=== PATIENT | female | born 1985 | race Hispanic/Latino ===

== ENCOUNTER 2021-11-18 05:29 | Inpatient (IN) | payer OTHER ==
[2021-11-18] VITALS (8 sets, daily range): BP systolic 93–107; BP diastolic 49–65
[~2021-11-18] VITALS: Ht 170.2 cm; Wt 176.9 kg
[2021-11-18 06:48] LABS: BASOPHILS % (AUTO) 0.2 % (0.0-5.0); HEMATOCRIT 30.9 % (36-48); LYMPHOCYTES % (AUTO) 7.7 % (21.0-51.0); MEAN CORPUSCULAR HEMOGLOBIN 18.6 pg (27.0-33.0); MEAN CORPUSCULAR HGB CONC 27.5 g/dL (32.0-36.0); MEAN CORPUSCULAR VOLUME 67.6 fL (79-99); MONOCYTES % (AUTO) 7.7 % (3.0-13.0); NEUTROPHILS % (AUTO) 83.6 % (40.0-77.0); NUCLEATED RED BLOOD CELLS 0.2 % (0.0-0.19); PLATELET COUNT (AUTO) 469 K/uL (130-400); RED BLOOD CELL COUNT(AUTO) 4.57 MIL/uL (4.00-5.50); RED CELL DISTRIBUTION WIDTH 18.9 % (11.0-15.5); WHITE BLOOD COUNT (AUTO) 17.3 K/uL (4.8-10.8)
[2021-11-18 07:01] LABS: ABG BASE EXCESS -4.7 mmol/L (-2.0-3.0); ABG HCO3 22.4 mmol/L (21.0-28.0); ABG OXYGEN SATURATION 83.5 % (95.0-99.0); ABG PCO2 49 mmHg (32-45)
[2021-11-18 07:06] LABS: ALBUMIN 1.9 g/dL (3.5-5.0); BILIRUBIN,TOTAL 0.4 mg/dL (0.2-1.0); CREATININE 6.7 mg/dL (0.5-1.5); POTASSIUM 4.8 mmol/L (3.5-5.1); TOTAL PROTEIN, SERUM 8.3 g/dL (6.0-8.3)
[2021-11-18] MEDS ORDERED: PANTOPRAZOLE 40 MG/VIAL IVP SCH (07:30)
[2021-11-18] MEDS ORDERED: FAMOTIDINE 20MG VIAL IV SCH (07:30)
[2021-11-18] MEDS ORDERED: ONDANSETRON 4MG INJ IVP SCH (07:30)
[2021-11-18] MEDS ORDERED: METOCLOPRAMIDE 10 MG/2 ML VIAL IVP SCH (07:30)
[2021-11-18] MEDS ORDERED: 0.9%NACL 1000ML 1,000 ML IV SCH (07:30)
[2021-11-18 10:06] LABS: BILIRUBIN,URINE Small (NEGATIVE); COLOR,URINE Dark Yellow (YELLOW); GLUCOSE, URINE (UA) Negative (NEGATIVE); KETONES,URINE Trace mg/dL (NEGATIVE); LEUKOCYTE ESTERASE ,URINE Trace (NEGATIVE); NITRATE,URINE Negative (NEGATIVE); OCCULT BLOOD,URINE Negative (NEGATIVE); PROTEIN,URINE POS 1+ mg/dL (NEGATIVE)
[2021-11-18 10:10] LABS: APPEARANCE,URINE CLOUDY (CLEAR)
[2021-11-18 10:15] LABS: RBC,URINE 0-1 /HPF (0-1); WBC,URINE 0-1 /HPF (0-1)
[2021-11-18 10:16] LABS: BACTERIA,URINE Few /HPF (None Seen); SQUAMOUS EPITHELIAL CELL,UR Few /HPF (0-2)
[2021-11-18] MEDS ORDERED: PHARMACY COMMUNICATION MISC SCH (11:00)
[2021-11-18] MEDS ORDERED: FOLIC ACID 5 MG/ML VIAL IV SCH (11:30)
[2021-11-18] MEDS ORDERED: THIAMINE HCL 100 MG/ML 2ML VIAL IVP SCH (11:30)
[2021-11-18] MEDS ORDERED: ZOSYN 3.375GM+NS 50ML 50 ML IV SCH (11:30)
[2021-11-18] MEDS: PANTOPRAZOLE 40 MG/VIAL IVP SCH (12:43)
[2021-11-18] MEDS: ALBUMIN (HUMAN) 25% 100 ML IV SCH ×2 (12:45→17:06)
[2021-11-18 12:47] LABS: CREATININE 6.9 mg/dL (0.5-1.5); POTASSIUM 5.2 mmol/L (3.5-5.1)
[2021-11-18 12:49] LABS: INR 1.08 (0.85-1.15); PROTHROMBIN TIME 11.7 SEC (9.6-11.6)
[2021-11-18 12:50] LABS: % IRON SATURATION 5.9 % (22-44); HEMOGLOBIN A1C 8.1 % (4.0-6.0)
[2021-11-18 12:51] LABS: PARTIAL THROMBOPLASTIN TIME 27.9 SEC (26.3-35.5)
[2021-11-18 13:29] LABS: CREATININE,URINE RANDOM 344 mg/dL (30-135); SODIUM,URINE RANDOM 27 mmol/l (40-220)
[2021-11-18] MEDS ORDERED: LOSA25TA41 PO (13:42)
[2021-11-18] MEDS ORDERED: METF-445 PO (13:42)
[2021-11-18] MEDS ORDERED: MIDODRINE HCL 5 MG TABLET PO SCH (14:00)
[2021-11-18] MEDS ORDERED: NA ZIRCON CYCLOSIL(LOKELMA 10GM) PO ONE (14:00)
[2021-11-18] MEDS: MIDODRINE HCL 5 MG TABLET PO SCH ×2 (14:01→20:14)
[2021-11-18] MEDS: SODIUM BICARBONATE 650 MG TAB PO SCH ×2 (14:01→20:14)
[2021-11-18 16:04] LABS: THYROID STIMULATING HORMONE 2.03 uIU/mL (0.36-3.74)
[2021-11-18] MEDS: DOXYCYCLINE 100MG+NS 250ML IV SCH (17:05)
[2021-11-18] MEDS: 0.9% NACL 250ML 250 ML IV SCH (17:05)
[2021-11-18] MEDS: HEPARIN 5,000 UNIT VIAL SQ SCH ×2 (17:05→23:03)
[2021-11-18] MEDS: FUROSEMIDE 20MG VIAL IV SCH (18:37)
[2021-11-18] MEDS: OCTREOTIDE ACETATE 100 MCG/ML AMP IV SCH (18:37)
[2021-11-18] MEDS: ALBUMIN (HUMAN) 25% 50 ML IV SCH (19:46)
[2021-11-18] MEDS: METOPROLOL TARTRATE 25 MG TAB PO SCH (20:14)
[2021-11-18] MEDS: ATORVASTATIN 20 MG TABLET PO SCH (20:14)
[2021-11-18] MEDS: ZOSYN 3.375GM+NS 50ML 50 ML IV SCH (20:15)
[2021-11-19] VITALS (12 sets, daily range): BP systolic 96–116; BP diastolic 42–75
[2021-11-19] MEDS: OCTREOTIDE ACETATE 100 MCG/ML AMP IV SCH ×3 (01:00→18:24)
[2021-11-19] MEDS: ALBUMIN (HUMAN) 25% 50 ML IV SCH ×3 (01:49→18:08)
[2021-11-19] MEDS: FUROSEMIDE 20MG VIAL IV SCH (02:15)
[2021-11-19] MEDS: 0.9% NACL 250ML 250 ML IV SCH ×2 (03:02→14:59)
[2021-11-19] MEDS: DOXYCYCLINE 100MG+NS 250ML IV SCH ×2 (03:02→14:49)
[2021-11-19 03:33] LABS: HEMATOCRIT 30.2 % (36-48); MEAN CORPUSCULAR HGB CONC 26.5 g/dL (32.0-36.0); MEAN CORPUSCULAR VOLUME 71.7 fL (79-99); NUCLEATED RED BLOOD CELLS 0.1 % (0.0-0.19); RED BLOOD CELL COUNT(AUTO) 4.21 MIL/uL (4.00-5.50); RED CELL DISTRIBUTION WIDTH 19.4 % (11.0-15.5); WHITE BLOOD COUNT (AUTO) 20.7 K/uL (4.8-10.8)
[2021-11-19 03:56] LABS: CREATININE 7.5 mg/dL (0.5-1.5); MAGNESIUM 2.4 mg/dL (1.80-2.40)
[2021-11-19 04:21] LABS: PHOSPHORUS 10.6 mg/dL (2.5-4.9)
[2021-11-19] MEDS ORDERED: DEXTROSE 50%-WATER 50 ML DISP.SYRIN IV ONE ×2 (04:30→04:42)
[2021-11-19] MEDS ORDERED: CALCIUM GLUC 1GM/10ML VIAL IV ONE (04:30)
[2021-11-19] MEDS ORDERED: ALBUTEROL 0.083% 2.5 MG/3 ML INH IH ONE (04:30)
[2021-11-19] MEDS ORDERED: INSULIN HUMULIN R 100 UNIT/ML 3ML IV ONE (04:30)
[2021-11-19] MEDS ORDERED: SODIUM BICARB 50MEQ 50ML VIAL IV ONE (04:30)
[2021-11-19] MEDS ORDERED: 0.9%NACL 50ML 50 ML IV ONE (04:39)
[2021-11-19] MEDS ORDERED: SODIUM BICARB 50MEQ 50ML VIAL 50 ML ONE (04:41)
[2021-11-19] MEDS ORDERED: CALCIUM GLUC 1GM/10ML VIAL ONE (04:42)
[2021-11-19] MEDS ORDERED: INSULIN HUMULIN R 100 UNIT/ML 3ML ONE (04:42)
[2021-11-19] MEDS: SODIUM BICARBONATE 650 MG TAB PO SCH ×2 (08:16→20:25)
[2021-11-19] MEDS: METOPROLOL TARTRATE 25 MG TAB PO SCH (08:16)
[2021-11-19] MEDS: ASPIRIN 81MG CHEW TAB PO SCH (08:16)
[2021-11-19] MEDS: ZOSYN 3.375GM+NS 50ML 50 ML IV SCH ×2 (08:17→20:24)
[2021-11-19] MEDS: THIAMINE HCL 100 MG/ML 2ML VIAL IVP SCH (08:17)
[2021-11-19] MEDS: PANTOPRAZOLE 40 MG/VIAL IVP SCH (08:17)
[2021-11-19] MEDS: MIDODRINE HCL 5 MG TABLET PO SCH ×3 (08:17→20:25)
[2021-11-19] MEDS: HEPARIN 5,000 UNIT VIAL SQ SCH ×3 (08:19→23:52)
[2021-11-19] MEDS: FOLIC ACID 5 MG/ML VIAL IV SCH (08:46)
[2021-11-19] MEDS ORDERED: PHARMACY COMMUNICATION MISC SCH (09:30)
[2021-11-19] MEDS: IRON SUCROSE COMPLEX 100 MG in 0.9%NACL 50ML 50 ML IV SCH (10:54)
[2021-11-19] MEDS ORDERED: NA ZIRCON CYCLOSIL(LOKELMA 10GM) PO SCH (11:30)
[2021-11-19] MEDS ORDERED: COMPOUND IV MISC 1 EACH IVSOLN MISC PRN (12:00)
[2021-11-19] MEDS ORDERED: FUROSEMIDE 20MG VIAL IV SCH (12:00)
[2021-11-19] MEDS: CALCIUM AC 667MG CAP PO SCH ×2 (12:30→16:44)
[2021-11-19] MEDS ORDERED: PERFLUTREN PROTEIN-A MICROSPHR 0.22 MG/ML VIAL IV ONE (15:00)
[2021-11-19] MEDS ORDERED: TRAMADOL HCL 50 MG TABLET PO ONE (17:50)
[2021-11-19] MEDS: ATORVASTATIN 20 MG TABLET PO SCH (20:24)
[2021-11-19] MEDS: EPOETIN ALFA-EPBX (ESRD) 10,000 UNIT/ML VIAL SQ SCH (23:52)
[2021-11-20] VITALS (15 sets, daily range): BP systolic 99–143; BP diastolic 47–83
[2021-11-20] MEDS: ALBUMIN (HUMAN) 25% 50 ML IV SCH ×2 (01:28→09:25)
[2021-11-20] MEDS: OCTREOTIDE ACETATE 100 MCG/ML AMP IV SCH ×3 (01:41→18:50)
[2021-11-20] MEDS: 0.9% NACL 250ML 250 ML IV SCH ×2 (04:24→16:00)
[2021-11-20] MEDS: DOXYCYCLINE 100MG+NS 250ML IV SCH ×2 (04:24→16:00)
[2021-11-20 05:51] LABS: BASOPHILS % (AUTO) 0.1 % (0.0-5.0); LYMPHOCYTES % (AUTO) 9.7 % (21.0-51.0); MEAN CORPUSCULAR HEMOGLOBIN 18.6 pg (27.0-33.0); MEAN CORPUSCULAR HGB CONC 27.1 g/dL (32.0-36.0); MEAN CORPUSCULAR VOLUME 68.6 fL (79-99); NEUTROPHILS % (AUTO) 84.8 % (40.0-77.0); NUCLEATED RED BLOOD CELLS 0.2 % (0.0-0.19); PLATELET COUNT (AUTO) 515 K/uL (130-400); RED BLOOD CELL COUNT(AUTO) 4.08 MIL/uL (4.00-5.50); RED CELL DISTRIBUTION WIDTH 18.8 % (11.0-15.5)
[2021-11-20 06:03] LABS: POTASSIUM 5.1 mmol/L (3.5-5.1)
[2021-11-20 06:07] LABS: CREATININE 8.1 mg/dL (0.5-1.5)
[2021-11-20 06:51] LABS: ABG BASE EXCESS -5.8 mmol/L (-2.0-3.0); ABG HCO3 22.8 mmol/L (21.0-28.0); ABG PCO2 57 mmHg (32-45)
[2021-11-20] MEDS: HEPARIN 5,000 UNIT VIAL SQ SCH ×2 (08:00→16:00)
[2021-11-20 08:33] LABS: HEPATITIS A IGM ANTIBODY Non-Reactive (Negative); HEPATITIS B SURFACE ANTIGEN Non-Reactive (Negative); HEPATITIS C ANTIBODY Non-Reactive (NEGATIVE)
[2021-11-20] MEDS ORDERED: 0.9%NACL 50ML 50 ML IV ONE (09:15)
[2021-11-20] MEDS: SODIUM BICARBONATE 650 MG TAB PO SCH ×2 (09:18→21:00)
[2021-11-20] MEDS: ZOSYN 3.375GM+NS 50ML 50 ML IV SCH ×2 (09:18→21:00)
[2021-11-20] MEDS: PANTOPRAZOLE 40 MG/VIAL IVP SCH (09:18)
[2021-11-20] MEDS: ASPIRIN 81MG CHEW TAB PO SCH (09:18)
[2021-11-20] MEDS: MIDODRINE HCL 5 MG TABLET PO SCH ×3 (09:19→21:00)
[2021-11-20] MEDS: THIAMINE HCL 100 MG/ML 2ML VIAL IVP SCH (09:19)
[2021-11-20] MEDS: FOLIC ACID 5 MG/ML VIAL IV SCH (09:20)
[2021-11-20] MEDS: CALCIUM AC 667MG CAP PO SCH ×3 (09:25→18:00)
[2021-11-20] MEDS: IRON SUCROSE COMPLEX 100 MG in 0.9%NACL 50ML 50 ML IV SCH (09:33)
[2021-11-20 09:41] LABS: HEMATOCRIT 28.2 % (36-48)
[2021-11-20 09:50] LABS: ALBUMIN 2.5 g/dL (3.5-5.0)
[2021-11-20 09:52] LABS: CREATININE 8.2 mg/dL (0.5-1.5)
[2021-11-20 10:25] LABS: HEPATITIS B CORE IGM ANTIBODY Non-Reactive (Negative)
[2021-11-20] MEDS ORDERED: HEPARIN 1,000 UNIT VIAL ONE (14:06)
[2021-11-20] MEDS ORDERED: LIDOCAINE HCL 1% MDV 50ML VIAL ONE (14:07)
[2021-11-20] MEDS: ATORVASTATIN 20 MG TABLET PO SCH (21:00)
[2021-11-21] VITALS (17 sets, daily range): BP systolic 88–142; BP diastolic 45–80
[2021-11-21] MEDS: HEPARIN 5,000 UNIT VIAL SQ SCH ×3 (00:48→15:26)
[2021-11-21] MEDS: ALBUMIN (HUMAN) 25% 50 ML IV SCH ×2 (01:00→09:57)
[2021-11-21] MEDS: OCTREOTIDE ACETATE 100 MCG/ML AMP IV SCH ×3 (02:57→17:18)
[2021-11-21] MEDS: 0.9% NACL 250ML 250 ML IV SCH ×2 (05:20→16:00)
[2021-11-21] MEDS: DOXYCYCLINE 100MG+NS 250ML IV SCH (05:20)
[2021-11-21] MEDS: CALCIUM AC 667MG CAP PO SCH ×2 (08:00→17:00)
[2021-11-21] MEDS: IRON SUCROSE COMPLEX 100 MG in 0.9%NACL 50ML 50 ML IV SCH ×2 (09:00→15:05)
[2021-11-21] MEDS: ZOSYN 3.375GM+NS 50ML 50 ML IV SCH (09:00)
[2021-11-21] MEDS: THIAMINE HCL 100 MG/ML 2ML VIAL IVP SCH ×2 (09:00→15:06)
[2021-11-21] MEDS: ASPIRIN 81MG CHEW TAB PO SCH (09:00)
[2021-11-21] MEDS: FOLIC ACID 5 MG/ML VIAL IV SCH ×2 (09:00→15:08)
[2021-11-21] MEDS: SODIUM BICARBONATE 650 MG TAB PO SCH ×2 (09:00→21:58)
[2021-11-21] MEDS: PANTOPRAZOLE 40 MG/VIAL IVP SCH ×2 (09:00→15:06)
[2021-11-21] MEDS: MIDODRINE HCL 5 MG TABLET PO SCH ×3 (09:52→21:58)
[2021-11-21 10:26] LABS: CREATININE 7.2 mg/dL (0.5-1.5); POTASSIUM 5.6 mmol/L (3.5-5.1)
[2021-11-21] MEDS: METRONIDAZOLE 500MG/100ML BAG 100 ML IVPB SCH ×2 (15:05→21:59)
[2021-11-21] MEDS: EPOETIN ALFA-EPBX (ESRD) 10,000 UNIT/ML VIAL SQ SCH (21:00)
[2021-11-21] MEDS ORDERED: EPOETIN ALFA-EPBX (ESRD) 10,000 UNIT/ML VIAL SQ SCH (21:00)
[2021-11-21] MEDS: ATORVASTATIN 20 MG TABLET PO SCH (21:58)
[2021-11-22] VITALS (29 sets, daily range): BP systolic 94–156; BP diastolic 51–91
[2021-11-22] MEDS: HEPARIN 5,000 UNIT VIAL SQ SCH ×3 (00:31→16:00)
[2021-11-22] MEDS: OCTREOTIDE ACETATE 100 MCG/ML AMP IV SCH ×2 (02:23→10:36)
[2021-11-22] MEDS: 0.9% NACL 250ML 250 ML IV SCH ×2 (04:00→16:00)
[2021-11-22] MEDS: METRONIDAZOLE 500MG/100ML BAG 100 ML IVPB SCH ×2 (06:05→23:16)
[2021-11-22] MEDS: CALCIUM AC 667MG CAP PO SCH ×2 (08:00→13:21)
[2021-11-22] MEDS: THIAMINE HCL 100 MG/ML 2ML VIAL IVP SCH (10:37)
[2021-11-22] MEDS: SODIUM BICARBONATE 650 MG TAB PO SCH ×2 (10:37→22:45)
[2021-11-22] MEDS: FOLIC ACID 5 MG/ML VIAL IV SCH (10:37)
[2021-11-22] MEDS: ASPIRIN 81MG CHEW TAB PO SCH (10:46)
[2021-11-22] MEDS: IRON SUCROSE COMPLEX 300 MG in 0.9%NACL 50ML 50 ML IV SCH (10:47)
[2021-11-22] MEDS ORDERED: VANCOMYCIN PROTOCOL PER PHARMACY IV PRN (12:30)
[2021-11-22] MEDS ORDERED: RENAL DOSE IV SCH (12:30)
[2021-11-22] MEDS ORDERED: COMPOUND IV REFRIGERATED 1 EACH IVSOLN MISC PRN (12:30)
[2021-11-22 12:39] LABS: BASOPHILS % (AUTO) 0.2 % (0.0-5.0); EOSINOPHILS % (AUTO) 0.2 % (0.0-8.0); HEMATOCRIT 27.5 % (36-48); LYMPHOCYTES % (AUTO) 7.6 % (21.0-51.0); MEAN CORPUSCULAR HEMOGLOBIN 18.7 pg (27.0-33.0); MEAN CORPUSCULAR HGB CONC 26.9 g/dL (32.0-36.0); MEAN CORPUSCULAR VOLUME 69.6 fL (79-99); MONOCYTES % (AUTO) 4.8 % (3.0-13.0); NEUTROPHILS % (AUTO) 85.9 % (40.0-77.0); NUCLEATED RED BLOOD CELLS 0.2 % (0.0-0.19); PLATELET COUNT (AUTO) 542 K/uL (130-400); RED BLOOD CELL COUNT(AUTO) 3.95 MIL/uL (4.00-5.50); RED CELL DISTRIBUTION WIDTH 19.5 % (11.0-15.5); WHITE BLOOD COUNT (AUTO) 16.9 K/uL (4.8-10.8)
[2021-11-22 13:02] LABS: ALBUMIN 2.3 g/dL (3.5-5.0); BILIRUBIN,TOTAL 1.6 mg/dL (0.2-1.0); CREATININE 5.8 mg/dL (0.5-1.5); POTASSIUM 4.5 mmol/L (3.5-5.1); TOTAL PROTEIN, SERUM 7.8 g/dL (6.0-8.3)
[2021-11-22] MEDS: MIDODRINE HCL 5 MG TABLET PO SCH ×2 (13:10→22:45)
[2021-11-22] MEDS: MEROPENEM 500 MG VIAL IV SCH ×2 (13:10→23:16)
[2021-11-22] MEDS: HYDROCORTISONE SOD SUCCINATE 100 MG/2 ML VIAL IV SCH ×2 (13:10→23:17)
[2021-11-22] MEDS ORDERED: SODIUM CHLORIDE 3% FOR INHALATION 4 ML/AMP VIAL.NEB IH ONE ×3 (13:13→23:37)
[2021-11-22 14:12] LABS: ALPHA-1-ANTITRYPSIN 357 mg/dL (100-188)
[2021-11-22] MEDS: VANCOMYCIN 1.75GM/250ML NS IV SCH ×2 (18:26)
[2021-11-22] MEDS ORDERED: HEPARIN 5,000 UNIT VIAL IV PRN (18:30)
[2021-11-22] MEDS: ATORVASTATIN 20 MG TABLET PO SCH (22:45)
[2021-11-23 00:15] VITALS: BP 129/71
[2021-11-23] MEDS: HEPARIN 5,000 UNIT VIAL SQ SCH ×3 (00:35→17:16)
[2021-11-23] MEDS: OCTREOTIDE ACETATE 100 MCG/ML AMP IV SCH ×2 (02:15→11:41)
[2021-11-23 04:00] VITALS: BP 121/63
[2021-11-23] MEDS: 0.9% NACL 250ML 250 ML IV SCH ×3 (04:00→17:05)
[2021-11-23 04:07] LABS: BASOPHILS % (AUTO) 0.1 % (0.0-5.0); HEMATOCRIT 27.7 % (36-48); LYMPHOCYTES % (AUTO) 5.1 % (21.0-51.0); MEAN CORPUSCULAR HGB CONC 27.1 g/dL (32.0-36.0); MEAN CORPUSCULAR VOLUME 70.3 fL (79-99); MONOCYTES % (AUTO) 3.7 % (3.0-13.0); NEUTROPHILS % (AUTO) 89.4 % (40.0-77.0); NUCLEATED RED BLOOD CELLS 0.1 % (0.0-0.19); PLATELET COUNT (AUTO) 498 K/uL (130-400); RED BLOOD CELL COUNT(AUTO) 3.94 MIL/uL (4.00-5.50); WHITE BLOOD COUNT (AUTO) 17.7 K/uL (4.8-10.8)
[2021-11-23 04:22] LABS: ALBUMIN 2.2 g/dL (3.5-5.0); BILIRUBIN,TOTAL 1.6 mg/dL (0.2-1.0); CREATININE 4.2 mg/dL (0.5-1.5); POTASSIUM 4.6 mmol/L (3.5-5.1)
[2021-11-23] MEDS: MEROPENEM 500 MG VIAL IV SCH ×3 (05:16→21:41)
[2021-11-23] MEDS: METRONIDAZOLE 500MG/100ML BAG 100 ML IVPB SCH ×3 (05:17→21:40)
[2021-11-23 07:57] VITALS: BP 134/70
[2021-11-23] MEDS: CALCIUM AC 667MG CAP PO SCH ×5 (08:00→17:11)
[2021-11-23] MEDS: PANTOPRAZOLE 40 MG/VIAL IVP SCH (10:12)
[2021-11-23] MEDS: ASPIRIN 81MG CHEW TAB PO SCH (10:13)
[2021-11-23] MEDS: SODIUM BICARBONATE 650 MG TAB PO SCH ×2 (10:14→21:39)
[2021-11-23] MEDS: MIDODRINE HCL 5 MG TABLET PO SCH ×3 (10:14→21:39)
[2021-11-23] MEDS: FUROSEMIDE 40MG VIAL IV SCH ×2 (10:14→21:40)
[2021-11-23] MEDS: HYDROCORTISONE SOD SUCCINATE 100 MG/2 ML VIAL IV SCH ×3 (10:16→21:41)
[2021-11-23 12:58] VITALS: BP 144/73
[2021-11-23 13:53] LABS: ABG HCO3 25.5 mmol/L (21.0-28.0); ABG OXYGEN SATURATION 89.8 % (95.0-99.0); ABG PCO2 54 mmHg (32-45)
[2021-11-23] MEDS: IRON SUCROSE COMPLEX 300 MG in 0.9%NACL 50ML 50 ML IV SCH ×2 (15:55→17:04)
[2021-11-23 16:56] VITALS: BP 145/76
[2021-11-23 20:00] VITALS: BP 138/80
[2021-11-23] MEDS: ATORVASTATIN 20 MG TABLET PO SCH (21:39)
[2021-11-23] MEDS: EPOETIN ALFA-EPBX (ESRD) 10,000 UNIT/ML VIAL SQ SCH (21:41)
[2021-11-24] VITALS (20 sets, daily range): BP systolic 128–160; BP diastolic 70–98
[2021-11-24] MEDS: HEPARIN 5,000 UNIT VIAL SQ SCH ×3 (00:52→16:26)
[2021-11-24] MEDS: MEROPENEM 500 MG VIAL IV SCH ×3 (05:05→21:17)
[2021-11-24] MEDS: METRONIDAZOLE 500MG/100ML BAG 100 ML IVPB SCH ×3 (05:05→21:16)
[2021-11-24 05:12] LABS: BASOPHILS % (AUTO) 0.2 % (0.0-5.0); HEMATOCRIT 27.3 % (36-48); LYMPHOCYTES % (AUTO) 5.3 % (21.0-51.0); MEAN CORPUSCULAR HEMOGLOBIN 19.2 pg (27.0-33.0); MEAN CORPUSCULAR HGB CONC 27.1 g/dL (32.0-36.0); MEAN CORPUSCULAR VOLUME 70.9 fL (79-99); NEUTROPHILS % (AUTO) 88.9 % (40.0-77.0); PLATELET COUNT (AUTO) 499 K/uL (130-400); RED BLOOD CELL COUNT(AUTO) 3.85 MIL/uL (4.00-5.50); RED CELL DISTRIBUTION WIDTH 20.5 % (11.0-15.5); WHITE BLOOD COUNT (AUTO) 16.4 K/uL (4.8-10.8)
[2021-11-24 05:26] LABS: ALBUMIN 2.2 g/dL (3.5-5.0); BILIRUBIN,TOTAL 1.3 mg/dL (0.2-1.0); CREATININE 3.7 mg/dL (0.5-1.5); POTASSIUM 4.7 mmol/L (3.5-5.1)
[2021-11-24] MEDS: SODIUM BICARBONATE 650 MG TAB PO SCH ×2 (10:26→21:16)
[2021-11-24] MEDS: ASPIRIN 81MG CHEW TAB PO SCH (10:26)
[2021-11-24] MEDS: MIDODRINE HCL 5 MG TABLET PO SCH ×3 (10:26→21:16)
[2021-11-24] MEDS: FUROSEMIDE 40MG VIAL IV SCH ×2 (10:27→21:17)
[2021-11-24] MEDS: PANTOPRAZOLE 40 MG/VIAL IVP SCH (10:28)
[2021-11-24] MEDS: THIAMINE HCL 100 MG/ML 2ML VIAL IVP SCH (10:28)
[2021-11-24] MEDS: HYDROCORTISONE SOD SUCCINATE 100 MG/2 ML VIAL IV SCH ×3 (10:29→21:17)
[2021-11-24] MEDS: FOLIC ACID 5 MG/ML VIAL IV SCH (10:29)
[2021-11-24] MEDS: CALCIUM AC 667MG CAP PO SCH ×3 (12:30→16:30)
[2021-11-24] MEDS: VANCOMYCIN 1.75GM/250ML NS IV SCH ×2 (13:11)
[2021-11-24] MEDS: IRON SUCROSE COMPLEX 300 MG in 0.9%NACL 50ML 50 ML IV SCH (16:29)
[2021-11-24] MEDS: ATORVASTATIN 20 MG TABLET PO SCH (21:16)
[2021-11-25] VITALS (7 sets, daily range): BP systolic 119–148; BP diastolic 66–80
[2021-11-25] MEDS: HEPARIN 5,000 UNIT VIAL SQ SCH ×5 (00:27→23:31)
[2021-11-25] MEDS: MEROPENEM 500 MG VIAL IV SCH ×3 (04:48→20:58)
[2021-11-25 05:22] LABS: BASOPHILS % (AUTO) 0.1 % (0.0-5.0); HEMATOCRIT 28.1 % (36-48); LYMPHOCYTES % (AUTO) 6.1 % (21.0-51.0); MEAN CORPUSCULAR HEMOGLOBIN 18.8 pg (27.0-33.0); MEAN CORPUSCULAR HGB CONC 26.3 g/dL (32.0-36.0); MEAN CORPUSCULAR VOLUME 71.3 fL (79-99); MONOCYTES % (AUTO) 4.9 % (3.0-13.0); NEUTROPHILS % (AUTO) 86.9 % (40.0-77.0); PLATELET COUNT (AUTO) 478 K/uL (130-400); RED BLOOD CELL COUNT(AUTO) 3.94 MIL/uL (4.00-5.50); RED CELL DISTRIBUTION WIDTH 21.2 % (11.0-15.5); WHITE BLOOD COUNT (AUTO) 16.3 K/uL (4.8-10.8)
[2021-11-25 05:35] LABS: ALBUMIN 2.3 g/dL (3.5-5.0); BILIRUBIN,TOTAL 0.8 mg/dL (0.2-1.0); CREATININE 2.2 mg/dL (0.5-1.5); POTASSIUM 4.1 mmol/L (3.5-5.1); TOTAL PROTEIN, SERUM 7.8 g/dL (6.0-8.3)
[2021-11-25] MEDS: METRONIDAZOLE 500MG/100ML BAG 100 ML IVPB SCH ×3 (06:20→20:58)
[2021-11-25] MEDS: CALCIUM AC 667MG CAP PO SCH ×3 (08:00→17:04)
[2021-11-25] MEDS: ASPIRIN 81MG CHEW TAB PO SCH (11:48)
[2021-11-25] MEDS: MIDODRINE HCL 5 MG TABLET PO SCH ×2 (11:49→14:00)
[2021-11-25] MEDS: THIAMINE HCL 100 MG/ML 2ML VIAL IVP SCH (11:49)
[2021-11-25] MEDS: PANTOPRAZOLE 40 MG/VIAL IVP SCH (11:49)
[2021-11-25] MEDS: HYDROCORTISONE SOD SUCCINATE 100 MG/2 ML VIAL IV SCH ×2 (11:51→14:00)
[2021-11-25] MEDS: FUROSEMIDE 40MG VIAL IV SCH ×2 (11:53→21:03)
[2021-11-25] MEDS: FOLIC ACID 5 MG/ML VIAL IV SCH (11:54)
[2021-11-25] MEDS: METOLAZONE 2.5 MG TABLET PO SCH (17:24)
[2021-11-25] MEDS: IRON SUCROSE COMPLEX 300 MG in 0.9%NACL 50ML 50 ML IV SCH (17:26)
[2021-11-25] MEDS: BISACODYL 5 MG TABLET.DR PO SCH (20:58)
[2021-11-26 04:00] VITALS: BP 148/82
[2021-11-26] MEDS: MEROPENEM 500 MG VIAL IV SCH ×3 (04:08→21:34)
[2021-11-26] MEDS: METRONIDAZOLE 500MG/100ML BAG 100 ML IVPB SCH ×3 (04:08→21:35)
[2021-11-26 06:01] LABS: BASOPHILS % (AUTO) 0.2 % (0.0-5.0); EOSINOPHILS % (AUTO) 0.3 % (0.0-8.0); HEMATOCRIT 30.6 % (36-48); LYMPHOCYTES % (AUTO) 8.4 % (21.0-51.0); MEAN CORPUSCULAR HEMOGLOBIN 19.3 pg (27.0-33.0); MEAN CORPUSCULAR HGB CONC 26.1 g/dL (32.0-36.0); MEAN CORPUSCULAR VOLUME 73.7 fL (79-99); MONOCYTES % (AUTO) 8.8 % (3.0-13.0); NEUTROPHILS % (AUTO) 80.5 % (40.0-77.0); PLATELET COUNT (AUTO) 474 K/uL (130-400); RED BLOOD CELL COUNT(AUTO) 4.15 MIL/uL (4.00-5.50); RED CELL DISTRIBUTION WIDTH 21.7 % (11.0-15.5)
[2021-11-26 06:23] LABS: % IRON SATURATION 25.3 % (22-44); INR 1.17 (0.85-1.15); PROTHROMBIN TIME 12.6 SEC (9.6-11.6)
[2021-11-26 06:24] LABS: PARTIAL THROMBOPLASTIN TIME 30.4 SEC (26.3-35.5)
[2021-11-26 06:44] LABS: ALBUMIN 2.3 g/dL (3.5-5.0); BILIRUBIN,TOTAL 0.6 mg/dL (0.2-1.0); CREATININE 1.6 mg/dL (0.5-1.5); PHOSPHORUS 4.3 mg/dL (2.5-4.9); POTASSIUM 3.8 mmol/L (3.5-5.1); TOTAL PROTEIN, SERUM 7.9 g/dL (6.0-8.3)
[2021-11-26 08:00] VITALS: BP 131/74
[2021-11-26] MEDS: CALCIUM AC 667MG CAP PO SCH ×3 (09:07→16:13)
[2021-11-26] MEDS: ASPIRIN 81MG CHEW TAB PO SCH (09:07)
[2021-11-26] MEDS: PANTOPRAZOLE 40 MG/VIAL IVP SCH (09:07)
[2021-11-26] MEDS: FUROSEMIDE 40MG VIAL IV SCH ×2 (09:07→21:35)
[2021-11-26] MEDS: BISACODYL 5 MG TABLET.DR PO SCH ×3 (09:07→21:35)
[2021-11-26] MEDS: THIAMINE HCL 100 MG/ML 2ML VIAL IVP SCH (09:07)
[2021-11-26] MEDS: HEPARIN 5,000 UNIT VIAL SQ SCH ×3 (09:08→23:57)
[2021-11-26 12:00] VITALS: BP 142/73
[2021-11-26] MEDS: METOLAZONE 2.5 MG TABLET PO SCH (12:00)
[2021-11-26] MEDS: FOLIC ACID 5 MG/ML VIAL IV SCH (12:21)
[2021-11-26 16:00] VITALS: BP 110/56
[2021-11-26] MEDS: IRON SUCROSE COMPLEX 300 MG in 0.9%NACL 50ML 50 ML IV SCH (16:13)
[2021-11-26 20:00] VITALS: BP 149/83
[2021-11-26] MEDS: EPOETIN ALFA-EPBX (ESRD) 10,000 UNIT/ML VIAL SQ SCH (21:35)
[2021-11-27] VITALS (7 sets, daily range): BP systolic 113–152; BP diastolic 63–87
[2021-11-27] MEDS: MEROPENEM 500 MG VIAL IV SCH ×2 (05:02→12:14)
[2021-11-27] MEDS: METRONIDAZOLE 500MG/100ML BAG 100 ML IVPB SCH ×2 (05:02→14:14)
[2021-11-27 07:08] LABS: CREATININE 1.3 mg/dL (0.5-1.5); POTASSIUM 3.9 mmol/L (3.5-5.1)
[2021-11-27] MEDS: THIAMINE HCL 100 MG/ML 2ML VIAL IVP SCH (09:28)
[2021-11-27] MEDS: FUROSEMIDE 40MG VIAL IV SCH (09:28)
[2021-11-27] MEDS: ASPIRIN 81MG CHEW TAB PO SCH (09:28)
[2021-11-27] MEDS: PANTOPRAZOLE 40 MG/VIAL IVP SCH (09:28)
[2021-11-27] MEDS: FOLIC ACID 5 MG/ML VIAL IV SCH (09:29)
[2021-11-27] MEDS: BISACODYL 5 MG TABLET.DR PO SCH ×2 (09:29→21:00)
[2021-11-27] MEDS: HEPARIN 5,000 UNIT VIAL SQ SCH (09:42)
[2021-11-27] MEDS: METOLAZONE 2.5 MG TABLET PO SCH (12:14)
[2021-11-27] MEDS ORDERED: AcetaZOLAMIDE 250 MG TAB PO SCH (14:30)
[2021-11-27] MEDS ORDERED: SPIRONOLACTONE 25 MG TAB PO SCH (14:30)
[2021-11-27] MEDS: METRONIDAZOLE 500 MG TABLET PO SCH ×2 (14:30→21:45)
[2021-11-27 14:49] LABS: HEMATOCRIT 32.4 % (36-48); MEAN CORPUSCULAR HEMOGLOBIN 19.3 pg (27.0-33.0); MEAN CORPUSCULAR HGB CONC 25.9 g/dL (32.0-36.0); MEAN CORPUSCULAR VOLUME 74.3 fL (79-99); PLATELET COUNT (AUTO) 435 K/uL (130-400); RED BLOOD CELL COUNT(AUTO) 4.36 MIL/uL (4.00-5.50); RED CELL DISTRIBUTION WIDTH 23.1 % (11.0-15.5); WHITE BLOOD COUNT (AUTO) 17.6 K/uL (4.8-10.8)
[2021-11-27] MEDS ORDERED: FUROSEMIDE 40 MG TABLET PO SCH (17:00)
[2021-11-27] MEDS: IRON SUCROSE COMPLEX 300 MG in 0.9%NACL 50ML 50 ML IV SCH (17:10)
[2021-11-27] MEDS: AcetaZOLAMIDE 250 MG TAB PO SCH (21:46)
[2021-11-28 03:44] LABS: HEMATOCRIT 32.8 % (36-48); MEAN CORPUSCULAR HEMOGLOBIN 19.4 pg (27.0-33.0); MEAN CORPUSCULAR HGB CONC 25.6 g/dL (32.0-36.0); MEAN CORPUSCULAR VOLUME 75.6 fL (79-99); RED BLOOD CELL COUNT(AUTO) 4.34 MIL/uL (4.00-5.50); RED CELL DISTRIBUTION WIDTH 23.8 % (11.0-15.5); WHITE BLOOD COUNT (AUTO) 15.9 K/uL (4.8-10.8)
[2021-11-28 04:08] LABS: ALBUMIN 2.5 g/dL (3.5-5.0); BILIRUBIN,TOTAL 0.6 mg/dL (0.2-1.0); CREATININE 1.3 mg/dL (0.5-1.5); POTASSIUM 3.5 mmol/L (3.5-5.1); TOTAL PROTEIN, SERUM 8.2 g/dL (6.0-8.3)
[2021-11-28 04:09] VITALS: BP 128/73
[2021-11-28] MEDS: METRONIDAZOLE 500 MG TABLET PO SCH ×2 (06:10→13:41)
[2021-11-28 07:48] VITALS: BP 141/79
[2021-11-28] MEDS ORDERED: SPIRONOLACTONE 25 MG TAB PO SCH (09:00)
[2021-11-28] MEDS ORDERED: ACET250T28 PO (10:14)
[2021-11-28] MEDS ORDERED: METR-172 PO (10:14)
[2021-11-28] MEDS ORDERED: MAGN400T7 PO (10:14)
[2021-11-28] MEDS ORDERED: FURO40TA7 PO (10:14)
[2021-11-28] MEDS ORDERED: SPIR50TA PO (10:14)
[2021-11-28] MEDS ORDERED: MAGNESIUM OXIDE 400 MG TABLET PO SCH (10:30)
[2021-11-28] MEDS: ASPIRIN 81MG CHEW TAB PO SCH (10:58)
[2021-11-28] MEDS: FOLIC ACID 5 MG/ML VIAL IV SCH (10:58)
[2021-11-28] MEDS: AcetaZOLAMIDE 250 MG TAB PO SCH (10:59)
[2021-11-28 11:30] VITALS: BP 135/76
[2021-11-28] MEDS: EPOETIN ALFA-EPBX (ESRD) 10,000 UNIT/ML VIAL SQ SCH (13:41)
[2021-11-28] MEDS ORDERED: METO25TA6 PO (14:39)
[2021-11-29] MEDS ORDERED: MAGNESIUM OXIDE 400 MG TABLET PO SCH (09:00)
[2021-11-29] MEDS ORDERED: FUROSEMIDE 40 MG TABLET PO SCH (09:00)
== END 2021-11-28 14:50 | disposition home or self-care (01) | DRG 871 ==
LOC: EDH 05:29 → EDHIP 05:30 → 2CH 13:56 → 2DH 11-19 09:20 → 4CH 11-20 14:31
PROVIDERS: ADMIT Internal Medicine; ATTEND Internal Medicine
PROC: 05HY33Z Insertion of Infusion Device into Upper Vein, Percutaneous Approach (ICD-10-PCS; principal; 2021-11-20)
PROC: 5A1D70Z Performance of Urinary Filtration, Intermittent, Less than 6 Hours Per Day (ICD-10-PCS; 2021-11-20)
PROC: 5A09357 Assistance with Respiratory Ventilation, Less than 24 Consecutive Hours, Continuous Positive Airway Pressure (ICD-10-PCS; 2021-11-20)
PROC: 5A1D70Z Performance of Urinary Filtration, Intermittent, Less than 6 Hours Per Day (ICD-10-PCS; 2021-11-21)
PROC: 5A1D70Z Performance of Urinary Filtration, Intermittent, Less than 6 Hours Per Day (ICD-10-PCS; 2021-11-22)
PROC: 5A09357 Assistance with Respiratory Ventilation, Less than 24 Consecutive Hours, Continuous Positive Airway Pressure (ICD-10-PCS; 2021-11-22)
PROC: 5A09357 Assistance with Respiratory Ventilation, Less than 24 Consecutive Hours, Continuous Positive Airway Pressure (ICD-10-PCS; 2021-11-23)
PROC: 5A1D70Z Performance of Urinary Filtration, Intermittent, Less than 6 Hours Per Day (ICD-10-PCS; 2021-11-24)
PROC: 5A09357 Assistance with Respiratory Ventilation, Less than 24 Consecutive Hours, Continuous Positive Airway Pressure (ICD-10-PCS; 2021-11-24)
PROC: 5A09357 Assistance with Respiratory Ventilation, Less than 24 Consecutive Hours, Continuous Positive Airway Pressure (ICD-10-PCS; 2021-11-25)
PROC: 05PYX3Z Removal of Infusion Device from Upper Vein, External Approach (ICD-10-PCS; 2021-11-27)
DX: A41.4 Sepsis due to anaerobes (principal); J96.01 Acute respiratory failure with hypoxia; N18.6 End stage renal disease; R65.21 Severe sepsis with septic shock; E43 Unspecified severe protein-calorie malnutrition; J96.02 Acute respiratory failure with hypercapnia; E87.1 Hypo-osmolality and hyponatremia; E66.2 Morbid (severe) obesity with alveolar hypoventilation; N17.9 Acute kidney failure, unspecified; Z68.43 Body mass index [BMI] 50.0-59.9, adult; I12.0 Hypertensive chronic kidney disease with stage 5 chronic kidney disease or end stage renal disease; J98.11 Atelectasis; R18.8 Other ascites; I13.11 Hypertensive heart and chronic kidney disease without heart failure, with stage 5 chronic kidney disease, or end stage renal disease; I24.8 Other forms of acute ischemic heart disease; E87.5 Hyperkalemia; E11.22 Type 2 diabetes mellitus with diabetic chronic kidney disease; D50.9 Iron deficiency anemia, unspecified; E78.1 Pure hyperglyceridemia; E78.5 Hyperlipidemia, unspecified; E87.6 Hypokalemia; E87.70 Fluid overload, unspecified; E88.09 Other disorders of plasma-protein metabolism, not elsewhere classified; F17.210 Nicotine dependence, cigarettes, uncomplicated; I27.20 Pulmonary hypertension, unspecified; K74.60 Unspecified cirrhosis of liver; Z20.822 Contact with and (suspected) exposure to COVID-19; K76.0 Fatty (change of) liver, not elsewhere classified; M47.816 Spondylosis without myelopathy or radiculopathy, lumbar region; Z79.82 Long term (current) use of aspirin; Z79.84 Long term (current) use of oral hypoglycemic drugs; Z79.899 Other long term (current) drug therapy; Z98.891 History of uterine scar from previous surgery; Z87.441 Personal history of nephrotic syndrome; Z80.0 Family history of malignant neoplasm of digestive organs
CPT/HCPCS: 36415; 36556; 36600; 71045; 74018; 74176; 76705; 76770; 77001; 78582; 80048; 80053; 80061; 80074; 80202; 81001; 81025; 82010; 82040; 82103; 82104; 82140; 82390; 82533; 82550; 82565; 82570; 82607; 82728; 82746; 82803; 82948; 83010; 83036; 83516; 83540; 83550; 83605; 83615; 83690; 83735; 83880; 83970; 84100; 84132; 84145; 84156; 84300; 84443; 84484; 84520; 84540; 84703; 85014; 85018; 85025; 85027; 85045; 85378; 85610; 85651; 85730; 86038; 86140; 86160; 86162; 86215; 86235; 86255; 86334; 86431; 86701; 87040; 87390; 87635; 87804; 90935; 93005; 93970; 94640; 94644; 94660; 96374; 97039; A9540; A9558; C1752; C8929; C9113; C9803; G0378; J0610; J1644; J1720; J1756; J1815; J1940; J2185; J2354; J2405; J2543; J2765; J3370; J3411; J3490; J7030; J7050; J7070; P9046; P9047